=== PATIENT | male | born 1965 | race Hispanic/Latino ===

== ENCOUNTER 2024-01-03 13:41 | Emergency (ER) | payer SELFPAY ==
[~2024-01-03] VITALS: Ht 170.2 cm; Wt 77.1 kg
[2024-01-03 13:50] VITALS: TEMP 98.4
[2024-01-03] MEDS ORDERED: PROCHLORPERAZINE EDISYLATE 5 MG/ML VIAL IV ONE (14:15)
[2024-01-03] MEDS: ONDANSETRON HCL INJ 2MG/ML 2ML 2 MG/ML VIAL IV STA (14:32)
[2024-01-03] MEDS: ACETAMINOPHEN 325 MG TAB PO ONE (14:32)
[2024-01-03] MEDS: SODIUM CHLORIDE 0.9% 1000ML 1,000 ML IV ONE (14:33)
[2024-01-03] MEDS: DIPHENHYDRAMINE HCL INJ 50 MG/ML VIAL IV ONE (14:33)
[2024-01-03] MEDS: KETOROLAC TROMETHAMINE 30 MG/ML VIAL IV STA (14:33)
[2024-01-03] MEDS ORDERED: SODIUM CHLORIDE 0.9% 100 ML ONE (14:45)
[2024-01-03] MEDS ORDERED: IOPAMIDOL 370 MG/ML 100 ML INFUS..BTL INJ ONE (14:45)
[2024-01-03] MEDS ORDERED: LABETALOL HCL 5 MG/ML 20ML VIAL IV STA (14:59)
[2024-01-03 15:21] VITALS: PULSE 66; RESP 18
[2024-01-03 15:24] LABS: BASOPHILS % 0.2 % (0.0-1.0); EOSINOPHILS % 0.1 % (0.0-6.0); HEMATOCRIT 44.9 % (38.2-49.6); HEMOGLOBIN 14.8 g/dL (14.0-18.0); LYMPHOCYTES # (AUTO) 0.8 (1.0-3.2); LYMPHOCYTES % 9.8 % (18.0-39.1); MEAN CORPUSCULAR HEMOGLOBIN 30.3 pg (28-32); MONOCYTES # (AUTO) 0.5 (0.2-0.8); MONOCYTES % 5.9 % (4.4-11.3); NEUTROPHILS # (AUTO) 7.2 (2.1-6.9); NEUTROPHILS % 83.8 % (38.7-80.0); PLATELET COUNT 248 x10e3/uL (140-360); RED BLOOD COUNT 4.88 x10e6/uL (4.3-5.7); RED CELL DISTRIBUTION WIDTH 12.3 % (11.7-14.4); WHITE BLOOD COUNT 8.59 x10e3/uL (4.8-10.8)
[2024-01-03 15:34] LABS: INR 1.08; PARTIAL THROMBOPLASTIN TIME 28.1 seconds (23.8-35.5); PROTHROMBIN TIME 14.6 seconds (11.9-14.5)
[2024-01-03 15:40] VITALS: BP 139/76; PULSE 66; RESP 18; TEMP 98.4; O2SAT 100
[2024-01-03 15:44] LABS: ALBUMIN 3.5 g/dL (3.5-5.0); ALBUMIN/GLOBULIN RATIO 1.1 (0.8-2.0); ANION GAP 14.1 mmol/L (8-16); CALCIUM 8.8 mg/dL (8.4-10.2); CREATININE, SERUM 0.88 mg/dL (0.72-1.25); POTASSIUM 4.1 mmol/L (3.5-5.1); TOTAL PROTEIN 6.7 g/dL (6.5-8.1)
== END 2024-01-03 15:45 | disposition other institution (70) ==
LOC: ER 13:47
DX: R51.9 Headache, unspecified (principal); I62.9 Nontraumatic intracranial hemorrhage, unspecified; R11.2 Nausea with vomiting, unspecified; E03.9 Hypothyroidism, unspecified
CPT/HCPCS: 36415; 70450; 70496; 70498; 80053; 85025; 85610; 85730; 99284; J1200; J1885; J2405; J7030; J7050; Q9967